=== PATIENT | female | born 1980 | race Caucasian/White ===

== ENCOUNTER 2020-03-20 22:26 | Emergency (ER) | payer BC ==
[~2020-03-20] VITALS: Ht 175.3 cm; Wt 143.2 kg
--- NOTE | 2020-03-20 22:44 | PHYS DOC ---
Past History Past Medical History: Arthritis, Seizure Past Medical History Hx. Chronic Pain Past Surgical History: Appendectomy, Other Past Surgical History Compression fx lumbar, Vagal Stimulator for Seizures Smoking: Cigarettes, Quit Greater Than 1 Year Alcohol Use: None Drug Use: None General Adult EDM: Chief Complaint: MECHANICAL FALL HPI: HPI: ".. I was walking along.. and next thing I know.. I was on the ground with a sore shoulder...Lt. hip and both knee hurt.. the Lt arm the hurts the most.... I do have seizures..." ".. and do have falls. sometimes...I ve had vagal stimulator... lst one was in 2002, replacement in 2010, and then a battery replacement in September in 2019.... I am hurting really bad in this Lt. shoulder..and Lt. hip... I did drive myself here...." Patient is a 39 year old female who presents with above hx and complaints fall for un know reason. Pt. states she didnt trip.., but just ended up on ground. Patient's primary area of pain is left shoulder and arm rated at 7/10, Lt. Hip 3/10, Knees 2/10. . Complains of numbness in left hand Patient does have an extensive history of a seizure disorder and does take meds for suppression of her seizures. Patient does have history of vagal stimulator which has been replaced x2, wires x3. Last surgery for vagal stimulator was at [facility]. Patient follows with Dr Villegas for care. Patient rating her pain as severe in left shoulder and hip. Pt.has report last Tetanus less 5 yrs. patient denies any recent travel outside the [place] area. Patient denies any history of immunosuppression. Patient has had history of chronic back pain after episode of compression fractures. Does have hx episodes of Bronchitis, but this has gotten better since she stopped smoking 4 y rs. ago. Patient denies any history of pulmonary embolisms or DVT of her family members. Patient denies any changes in her seizure meds and has been compliant with seizure meds. Patient works at [employer]. Patient in a COVID risk factors. Patient normally follows at [facility] for her seizure disorder. Follows with Dr. Polk as a primary. Review of Systems: Review of Systems: Constitutional: Denies fever or chills Eyes: Denies change in visual acuity HENT: Denies nasal congestion or sore throat Respiratory: Denies cough or shortness of breath Cardiovascular: Denies chest pain or edema GI: Denies abdominal pain, nausea, vomiting, bloody stools or diarrhea : Denies dysuria Musculoskeletal: Complains of left shoulder, left hip, and bilateral knee pain. Integument: Denies rash Neurologic: Denies headache, focal weakness or sensory changes Endocrine: Denies polyuria or polydipsia Lymphatic: Denies swollen glands Psychiatric: Denies depression or anxiety Heart Score: HEART Score for Chest Pain: HEART Score for Chest Pain Response (Comments) Value History Moderately Suspicious 1 ECG Nonspecific Repolarizatio 1 Age < 45 0 Risk Factors 1 or 2 Risk Factors 1 Troponin < Normal Limit 0 Total 3 Risk Factors: Risk Factors: DM, Current or recent (<one month) smoker, HTN, HLP, family history of CAD, obesity. Risk Scores: Score 0 - 3: 2.5% MACE over next 6 weeks - Discharge Home Score 4 - 6: 20.3% MACE over next 6 weeks - Admit for Clinical Observation Score 7 - 10: 72.7% MACE over next 6 weeks - Early Invasive Strategies Family History: Family History: Noncontributory to presentation Current Medications: Current Meds: See nursing for home medications Allergies: Allergies: Allergies Coded Allergies Type Severity Reaction Last Updated Verified No Known Drug Allergies 07/16/15 No Physical Exam: PE: Constitutional: Moderate acute distress, non-toxic appearance. [] HENT: Normocephalic, atraumatic, bilateral external ears normal, oropharynx moist, no oral exudates, nose normal. [] Eyes: PERRLA, EOMI, conjunctiva normal, no discharge. [] Neck: Normal range of motion, no tenderness, supple, no stridor. Old surgery scar. Cardiovascular: Bradycardia heart rate regular rhythm, no murmur [] Lungs & Thorax: Bilateral breath sounds equal apex with basilar crackles on auscultation [] Abdomen: Bowel sounds normal, soft, no tenderness, no masses, no pulsatile masses. Morbidly obese. Old surgery scar. Skin: Warm, dry, no erythema, no rash. [] Back: No tenderness, no CVA tenderness. [] Extremities: Left shoulder, left hip and bilateral knee tenderness, no cyanosis, no clubbing, ROM limited in left shoulder, bilateral ankle edema. [] Appears to have focal left shoulder bursa and AC joint tenderness on palpation.. Does have findings consistent with rotator cuff tear-giveaway weakness with pain when arm held in extension. Unable to appreciate cording in legs. Neurologic: Alert and oriented X 3, normal motor function, normal sensory function, no focal deficits noted. [] Psychologic: Affect anxious and angry, mood normal. [] EKG: EKG: Refuses EKG initially after arrival to ED. Eventually agreed to EKG - Impression sinus bradycardia at 59 bpm. There is a anterior septal change but no obvious findings of acute STEMI with contralateral changes. [] Pt. decline repeat EKG Radiology/Procedures: Radiology/Procedures: [address] [address] IMAGING REPORT Signed PATIENT: JACQUELYN CHOUDHURY MACCOUNT: [id number] : 1980 LOCATION: ER AGE: 39 SEX: F EXAM STATUS: REG ER ORD. PHYSICIAN: SASKIA ALVAREZ MD REASON: syncope PROCEDURE: CT ANGIOGRAPHY CHEST EXAM: CT ANGIOGRAPHY OF THE CHEST WITH AND WITHOUT CONTRAST. HISTORY: Syncope. TECHNIQUE: Computed tomographic angiography of the chest was performed before and after the intravenous administration of Isovue 370. 3-D maximum intensity projections were also performed. One or more of the following individualized dose reduction techniques were utilized for this examination: 1. Automated exposure control. 2. Adjustment of the mA and/or kV according to patient size. 3. Use of iterative reconstruction technique. COMPARISON: None. FINDINGS: Images of the upper abdomen reveal severe diffuse hepatic steatosis. Bone windows reveal no suspicious lesions. No pulmonary emboli are identified. There is no aortic dissection or aneurysm. There is a normal variant origin of the left vertebral artery directly from the aortic arch. There are no pathologically enlarged mediastinal or axillary lymph nodes. There is no pleural or pericardial effusion. The heart is not enlarged. A cardiac monitoring device projects over the left chest. Lung windows reveal no infiltrates. There is mild bronchial wall thickening. IMPRESSION: 1. No pulmonary embolism. 2. Severe diffuse hepatic steatosis. 3. Mild bronchial wall thickening suggests acute or chronic bronchitis. Electronically signed by: Lizandro Beltrán MD (03/21/2020 3:54 AM) [facility] DICTATED AND SIGNED BY: STEVEN BELTRÁN MD DATE: 03/21/20 0354 CC: SASKIA ALVAREZ MD; RUSS VILLEGAS MD ~ [address] [address] IMAGING REPORT Signed PATIENT: JACQUELYN CHOUDHURY MACCOUNT: [id number] : 1980 LOCATION: ER AGE: 39 SEX: F EXAM STATUS: REG ER ORD. PHYSICIAN: SASKIA ALVAREZ MD REASON: FALL.HX STIMULATOR IMPLANT PROCEDURE: SHOULDER 2+V LEFT EXAM: 1. CHEST ONE VIEW. 2. LEFT SHOULDER 3 VIEWS. HISTORY: Fall. COMPARISON: None. FINDINGS: A frontal view of the chest is obtained. A left-sided vagus nerve stimulator is noted. There are no confluent infiltrates. There is no pneumothorax or pleural effusion. The heart is not enlarged. 3 views of the left shoulder are obtained. No fractures are identified. Acromi clavicular and glenohumeral joint spaces and alignment are maintained. IMPRESSION: 1. No confluent infiltrates. 2. No fracture or malalignment. Electronically signed by: Lizandro Beltrán MD (03/21/2020 12:52 AM) [facility] DICTATED AND SIGNED BY: STEVEN BELTRÁN MD DATE: 03/21/20 0052 CC: SASKIA ALVAREZ MD; RUSS VILLEGAS MD ~ [address] [address] IMAGING REPORT Signed PATIENT: JACQUELYN CHOUDHURY MACCOUNT: [id number] : 1980 LOCATION: ER AGE: 39 SEX: F EXAM STATUS: REG ER ORD. PHYSICIAN: SASKIA ALVAREZ MD REASON: FALL-2100, HX EPILEPSY PROCEDURE: CT HEAD WO CONTRAST EXAM: CT HEAD WITHOUT CONTRAST. HISTORY: Fall, epilepsy. TECHNIQUE: Computed tomography of the head was performed without intravenous contrast. One or more of the following individualized dose reduction techniques were utilized for this examination: 1. Automated exposure control. 2. Adjustment of the mA and/or kV according to patient size. 3. Use of iterative reconstruction technique. COMPARISON: None. FINDINGS: There is no intracranial hemorrhage. King-white differentiation is preserved. The ventricles are normal in size and position. The visualized paranasal sinuses appear clear. The orbits are unremarkable. The temporal bones are unremarkable. The calvarium reveals no suspicious lesions. IMPRESSION: 1. No acute intracranial findings. Electronically signed by: Lizandro Beltrán MD (03/21/2020 12:45 AM) [facility] DICTATED AND SIGNED BY: STEVEN BELTRÁN MD DATE: 03/21/20 0045 CC: SASKIA ALVAREZ MD; RUSS VILLEGAS MD ~ [place] [address] IMAGING REPORT Signed PATIENT: JACQUELYN CHOUDHURY MACCOUNT: [id number] : 1980 LOCATION: ER AGE: 39 SEX: F EXAM STATUS: REG ER ORD. PHYSICIAN: SASKIA ALVAREZ MD REASON: FALL, PAIN. HX LOWER BACK SURGERY PROCEDURE: CT LUMBAR SPINE WO CONTRAST EXAM: 1. CT lumbar spine without contrast. 2. CT pelvis without contrast. HISTORY: Fall, low back and pelvic pain. TECHNIQUE: CT of the lumbar spine and pelvis was performed without intravenous contrast. One or more of the following individualized dose reduction techniques were utilized for this examination: 1. Automated exposure control. 2. Adjustment of the mA and/or kV according to patient size. 3. Use of iterative reconstruction technique. COMPARISON: None. FINDINGS: Lumbar alignment is maintained. There is mild superior endplate depression centrally from L1 through L3, consistent with Schmorl's nodes and remote compression deformities. No acute fractures are seen. Degenerative disc disease is moderate at L4-5. At L3-4, there is a small posterior disc bulge. There is no stenosis. At L4-5, partial laminectomy changes are suspected. There is a moderate posterior disc bulge with a superimposed left paracentral protrusion. The central canal is decompressed. Lateral recess stenosis persists on the left greater than right and appears at least moderate. Neural foraminal stenosis is moderate on the right and mild to moderate on the left. At L5-S1, there is a moderate posterior disc bulge with a superimposed moderate left paracentral protrusion. This narrows the left lateral recess moderately with mass effect on the left S1 nerve root. Neural foraminal stenosis is moderate on the left. Changes of appendectomy are noted. There is no evidence of intrapelvic injury. No fractures are identified within the pelvis or either proximal femur. 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 There is mildly decreased femoral head/neck offset bilaterally. The joint spaces of both hips are maintained. IMPRESSION: 1. No fracture or malalignment. 2. Left paracentral disc protrusions from L4 through S1 results in left lateral recess stenosis. Foraminal stenosis is up to moderate at multiple levels as detailed above. 3. Correlate for mild femoroacetabular impingement anteriorly bilaterally. Electronically signed by: Lizandro Beltrán MD (03/21/2020 12:54 AM) [facility] DICTATED AND SIGNED BY: STEVEN BELTRÁN MD DATE: 03/21/2053 CC: SASKIA ALVAREZ MD; RUSS VILLEGAS MD ~ [][place] [address] IMAGING REPORT Signed PATIENT: JACQUELYN CHOUDHURY MACCRISSYUNT: [id number] : 1980 LOCATION: ER AGE: 39 SEX: F EXAM STATUS: REG ER ORD. PHYSICIAN: SASKIA ALVAREZ MD REASON: fall PROCEDURE: CHEST AP ONLY EXAM: 1. CHEST ONE VIEW. 2. LEFT SHOULDER 3 VIEWS. HISTORY: Fall. COMPARISON: None. FINDINGS: A frontal view of the chest is obtained. A left-sided vagus nerve stimulator is noted. There are no confluent infiltrates. There is no pneumothorax or pleural effusion. The heart is not enlarged. 3 views of the left shoulder are obtained. No fractures are identified. Acromi clavicular and glenohumeral joint spaces and alignment are maintained. IMPRESSION: 1. No confluent infiltrates. 2. No fracture or malalignment. Electronically signed by: Lizandro Beltrán MD (03/21/2020 12:52 AM) [facility] DICTATED AND SIGNED BY: STEVEN BELTRÁN MD DATE: 03/21/2051 CC: SASIKA ALVAREZ MD; RUSS VILLEGAS MD ~ Course & Med Decision Making: Course & Med Decision Making Pertinent Labs and Imaging studies reviewed. (See chart for details) Pt.declines admission at this time or transfer. Declines further work up at this time. Risks discussed of differ causes of syncope and her prior seizure disorder. Patient insisting on discharge. Patient encouraged to take a daily baby aspirin. Patient wear sling. Patient use ice packs as needed to left sh oulder. Patient take Tylenol and ibuprofen for pain. For marked pain patient may take Vicoprofen up to 4 times a day. Patient to take arm out of sling at least 4 times a day for passive range of motion. Patient encouraged to follow- up with Dr. Polk and her neurologist. Possible need for follow-up orthopedics for further evaluation of her rotator cuff and left shoulder injury. Recommend patient avoid hazardous activity or driving until because of her fall is clarified. Pt.to not drive with the use of narcotics. Impression: 1. Fall 2. Possible Syncope vs Seizure 3. Bradycardia 4. Elevated D-dimer 6.40 # 5. Mild Elevation CK 210 6. Lt. Rotator Cuff Tear 7. Multilevel DJD, Foraminal stenosis- Lumbar 8. Contusion Lt Hip, bilateral Knees [] Dragon Disclaimer: Dragpraveen Disclaimer: This electronic medical record was generated, in whole or in part, using a voice recognition dictation system. Departure Departure: Disposition: HOME/RESIDENCE PRIOR TO ADM Condition: STABLE Referrals: RUSS VILLEGAS MD (PCP) Scripts Albuterol Sulfate (VENTOLIN HFA INHALER) 18 Gm Hfa.aer.ad 2 PUFF IH PRN Q4HRS PRN for FOR ASTHMA for 30 Days, INHALER 0 Refills Prov: SASKIA ALVAREZ MD 03/21/20 Hydrocodone/Ibuprofen (HYDROCODONE-IBUPROFEN 7.5-200 ) 1 Each Tablet 1 TAB PO PRN Q6HRS PRN for PAIN, #30 TAB 0 Refills Prov: SASKIA ALVAREZ MD 03/21/20 Dragon Disclaimer This chart was dictated in whole or in part using Voice Recognition software in a busy, high-work load, and often noisy Emergency Department environment. It may contain unintended and wholly unrecognized errors or omissions. SASKIA ALVAREZ MD March 20, 2020 22:44
[2020-03-20] MEDS ORDERED: TOPI200T25 PO (23:03)
[2020-03-20] MEDS ORDERED: LAMO200T6 PO (23:03)
[2020-03-20] MEDS ORDERED: FOLI20CA PO (23:04)
[2020-03-20] MEDS ORDERED: CETI10TA74 PO (23:05)
[2020-03-20] MEDS ORDERED: OMEP20CA16 PO (23:06)
[2020-03-20] MEDS ORDERED: IV RINGERS SOLUTION,LACTATED 1,000 ML IV SCH (23:30)
--- NOTE | 2020-03-21 00:49 | RAD ---
EXAM: CT HEAD WITHOUT CONTRAST. HISTORY: Fall, epilepsy. TECHNIQUE: Computed tomography of the head was performed without intravenous contrast. One or more of the following individualized dose reduction techniques were utilized for this examination: 1. Automated exposure control. 2. Adjustment of the mA and/or kV according to patient size. 3. Use of iterative reconstruction technique. COMPARISON: None. FINDINGS: There is no intracranial hemorrhage. King-white differentiation is preserved. The ventricles are normal in size and position. The visualized paranasal sinuses appear clear. The orbits are unremarkable. The temporal bones are unremarkable. The calvarium reveals no suspicious lesions. IMPRESSION: 1. No acute intracranial findings. Electronically signed by: Lizandro Beltrán MD (03/21/2020 12:45 AM) [facility]
--- NOTE | 2020-03-21 00:55 | RAD ---
EXAM: 1. CHEST ONE VIEW. 2. LEFT SHOULDER 3 VIEWS. HISTORY: Fall. COMPARISON: None. FINDINGS: A frontal view of the chest is obtained. A left-sided vagus nerve stimulator is noted. There are no confluent infiltrates. There is no pneumothorax or pleural effusion. The heart is not enlarged. 3 views of the left shoulder are obtained. No fractures are identified. Acromi clavicular and glenohumeral joint spaces and alignment are maintained. IMPRESSION: 1. No confluent infiltrates. 2. No fracture or malalignment. Electronically signed by: Lizandro Beltrán MD (03/21/2020 12:52 AM) [facility]
--- NOTE | 2020-03-21 00:57 | RAD ---
EXAM: 1. CT lumbar spine without contrast. 2. CT pelvis without contrast. HISTORY: Fall, low back and pelvic pain. TECHNIQUE: CT of the lumbar spine and pelvis was performed without intravenous contrast. One or more of the following individualized dose reduction techniques were utilized for this examination: 1. Automated exposure control. 2. Adjustment of the mA and/or kV according to patient size. 3. Use of iterative reconstruction technique. COMPARISON: None. FINDINGS: Lumbar alignment is maintained. There is mild superior endplate depression centrally from L1 through L3, consistent with Schmorl's nodes and remote compression deformities. No acute fractures are seen. Degenerative disc disease is moderate at L4-5. At L3-4, there is a small posterior disc bulge. There is no stenosis. At L4-5, partial laminectomy changes are suspected. There is a moderate posterior disc bulge with a superimposed left paracentral protrusion. The central canal is decompressed. Lateral recess stenosis persists on the left greater than right and appears at least moderate. Neural foraminal stenosis is moderate on the right and mild to moderate on the left. At L5-S1, there is a moderate posterior disc bulge with a superimposed moderate left paracentral protrusion. This narrows the left lateral recess moderately with mass effect on the left S1 nerve root. Neural foraminal stenosis is moderate on the left. Changes of appendectomy are noted. There is no evidence of intrapelvic injury. No fractures are identified within the pelvis or either proximal femur. 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 There is mildly decreased femoral head/neck offset bilaterally. The joint spaces of both hips are maintained. IMPRESSION: 1. No fracture or malalignment. 2. Left paracentral disc protrusions from L4 through S1 results in left lateral recess stenosis. Foraminal stenosis is up to moderate at multiple levels as detailed above. 3. Correlate for mild femoroacetabular impingement anteriorly bilaterally. Electronically signed by: Lizandro Beltrán MD (03/21/2020 12:54 AM) [facility]
[2020-03-21 01:07] LABS: CALCIUM 9.1 mg/dL (8.5-10.1); CREATININE 0.9 mg/dL (0.6-1.0); GFR 70.5; POTASSIUM 3.9 mmol/L (3.5-5.1)
[2020-03-21 01:13] LABS: BASO # 0.1 x10^3/uL (0.0-0.2); BASO % 1 % (0-3); EOS # 0.4 x10^3/uL (0.0-0.7); EOS % 5 % (0-3); HEMATOCRIT 40.4 % (36.0-47.0); HEMOGLOBIN 13.9 g/dL (12.0-15.5); LYMPH # 3.2 x10^3/uL (1.0-4.8); LYMPH % 38 % (24-48); MEAN CORPUSCULAR HEMOGLOBIN 30 pg (25-35); MEAN CORPUSCULAR HGB CONC 34 g/dL (31-37); MEAN CORPUSCULAR VOLUME 86 fL (79-100); MONO # 0.6 x10^3/uL (0.0-1.1); MONO % 7 % (0-9); NEUT # 4.2 x10^3uL (1.8-7.7); NEUT % 50 % (31-73); PLATELET COUNT 319 x10^3/uL (140-400); RED BLOOD COUNT 4.68 x10^6/uL (3.50-5.40); RED CELL DISTRIBUTION WIDTH 13.2 % (11.5-14.5); WHITE BLOOD COUNT 8.4 x10^3/uL (4.0-11.0)
[2020-03-21 01:19] LABS: ALBUMIN 3.5 g/dL (3.4-5.0); DIRECT BILIRUBIN 0.1 mg/dL (0.0-0.2); TOTAL BILIRUBIN 0.2 mg/dL (0.2-1.0); TOTAL PROTEIN 7.6 g/dL (6.4-8.2)
[2020-03-21] MEDS ORDERED: ENOXAPARIN ** NOTE DOSE ** SYRINGE SQ ONE (03:00)
[2020-03-21] MEDS ORDERED: CONTRAST GIVEN. MC PRN (03:00)
[2020-03-21] MEDS ORDERED: IOHEXOL 350 MG/ML 100 ML VIAL. IV ONE (03:00)
--- NOTE | 2020-03-21 03:57 | RAD ---
EXAM: CT ANGIOGRAPHY OF THE CHEST WITH AND WITHOUT CONTRAST. HISTORY: Syncope. TECHNIQUE: Computed tomographic angiography of the chest was performed before and after the intravenous administration of Isovue 370. 3-D maximum intensity projections were also performed. One or more of the following individualized dose reduction techniques were utilized for this examination: 1. Automated exposure control. 2. Adjustment of the mA and/or kV according to patient size. 3. Use of iterative reconstruction technique. COMPARISON: None. FINDINGS: Images of the upper abdomen reveal severe diffuse hepatic steatosis. Bone windows reveal no suspicious lesions. No pulmonary emboli are identified. There is no aortic dissection or aneurysm. There is a normal variant origin of the left vertebral artery directly from the aortic arch. There are no pathologically enlarged mediastinal or axillary lymph nodes. There is no pleural or pericardial effusion. The heart is not enlarged. A cardiac monitoring device projects over the left chest. Lung windows reveal no infiltrates. There is mild bronchial wall thickening. IMPRESSION: 1. No pulmonary embolism. 2. Severe diffuse hepatic steatosis. 3. Mild bronchial wall thickening suggests acute or chronic bronchitis. Electronically signed by: Lizandro Beltrán MD (03/21/2020 3:54 AM) [facility]
[2020-03-21 04:30] VITALS: BP 108/60
[2020-03-21] MEDS ORDERED: HYDR-1179 PO (04:31)
[2020-03-21] MEDS ORDERED: ALBU2.5V8 IH (04:31)
[2020-03-21] MEDS ORDERED: MORPHINE SULFATE 10 MG/ML SYRINGE. ONE (04:40)
[2020-03-21] MEDS ORDERED: ALBUTEROL SULFATE 8GM INHALER. ONE (04:40)
[2020-03-21] MEDS ORDERED: MORPHINE SULFATE 10 MG/ML SYRINGE. SQ ONE ×2 (04:45)
[2020-03-21] MEDS ORDERED: ALBUTEROL SULFATE 8GM INHALER. INH ONE (05:00)
--- NOTE | 2020-03-21 05:02 | EKG ---
[address] [address] Test Date: 2020-03-21 Test Time: 02:38:49 Pat Name: JACQUELYN CHOUDHURY Department: Room: Gender: F [place]er: : 1980 Requested By: SASKIA ALVAREZ Order Number: [id number] Reading MD: Saw Salazar MD Measurements Intervals [place] Rate: 59 P: 33 UT: 166 QRS: 32 QRSD: 86 T: 39 QT: 424 QTc: 424 Interpretive Statements SINUS RHYTHM Electronically Signed On 03-23-2020 12:20:07 CDT by Saw Salazar MD
== END 2020-03-21 04:50 | disposition home or self-care (01) ==
LOC: ER 22:26
DX: S46.012A Strain of muscle(s) and tendon(s) of the rotator cuff of left shoulder, initial encounter (principal); S70.02XA Contusion of left hip, initial encounter; S80.02XA Contusion of left knee, initial encounter; S80.01XA Contusion of right knee, initial encounter; R00.1 Bradycardia, unspecified; R79.1 Abnormal coagulation profile; M47.816 Spondylosis without myelopathy or radiculopathy, lumbar region; R79.89 Other specified abnormal findings of blood chemistry; G40.909 Epilepsy, unspecified, not intractable, without status epilepticus; Z87.891 Personal history of nicotine dependence; W18.39XA Other fall on same level, initial encounter; Y93.01 Activity, walking, marching and hiking; Y92.89 Other specified places as the place of occurrence of the external cause; Y99.8 Other external cause status
CPT/HCPCS: 36415; 70450; 71045; 71275; 72131; 72192; 73030; 80048; 80076; 82550; 83690; 83735; 83880; 84443; 84484; 85025; 85379; 85610; 85730; 93005; 94640; 96372; 99285; J1650; J2270; J7120; J7613; Q9967